=== PATIENT | female | born 1955 | race Caucasian/White ===

== ENCOUNTER 2022-09-16 08:48 | Outpatient (CLI) | payer BC | END 2022-09-16 08:49 | disposition home or self-care (01) | LOC: BICMAMMO 08:48 | PROVIDERS: ATTEND Obstetrics & Gynecology | DX: M85.88 Other specified disorders of bone density and structure, other site (principal); M81.0 Age-related osteoporosis without current pathological fracture | CPT/HCPCS: 77080 ==

== ENCOUNTER 2023-04-12 08:56 | Day surgery (SDC) | payer BC ==
[~2023-04-12 08:56] MED LIST: ROMOSOZUMAB-AQQG 210 MG/2.34 ML SYR SQ SCH
[2023-04-12 10:10] VITALS: BP 119/60; TEMP 98.2
[2023-04-12] MEDS ORDERED: FLU VACC QS2023(65UP)/MF59C/PF 60 MCG/0.5 ML SYRINGE IM ONE (14:00)
== END 2023-04-12 10:10 | disposition home or self-care (01) ==
LOC: ONC/OP 08:56
PROVIDERS: ATTEND Internal Medicine
DX: M81.0 Age-related osteoporosis without current pathological fracture (principal); Z88.2 Allergy status to sulfonamides
CPT/HCPCS: 96372; J3111

== ENCOUNTER 2023-05-11 09:39 | Day surgery (SDC) | payer BC ==
[2023-05-11 09:50] VITALS: BP 148/64; TEMP 98.2
== END 2023-05-11 11:33 | disposition home or self-care (01) ==
LOC: ONC/OP 09:39
PROVIDERS: ATTEND Internal Medicine
DX: M81.0 Age-related osteoporosis without current pathological fracture (principal)
CPT/HCPCS: 96372; J3111

== ENCOUNTER 2023-07-07 09:46 | Day surgery (SDC) | payer BC ==
[2023-07-07 10:02] VITALS: BP 139/64; TEMP 98.1
[2023-07-07] MEDS: ROMOSOZUMAB-AQQG 210 MG/2.34 ML SYR SQ SCH (10:07)
== END 2023-07-07 10:23 | disposition home or self-care (01) ==
LOC: ONC/OP 09:46
PROVIDERS: ATTEND Internal Medicine
DX: M81.0 Age-related osteoporosis without current pathological fracture (principal); Z88.2 Allergy status to sulfonamides
CPT/HCPCS: 96372; J3111

== ENCOUNTER 2023-08-03 09:20 | Day surgery (SDC) | payer BC ==
[2023-08-03 09:49] VITALS: BP 126/65; TEMP 98.5
[2023-08-03] MEDS: ROMOSOZUMAB-AQQG 210 MG/2.34 ML SYR SQ SCH (10:20)
== END 2023-08-03 10:35 | disposition home or self-care (01) ==
LOC: ONC/OP 09:20
PROVIDERS: ATTEND Internal Medicine
DX: M81.0 Age-related osteoporosis without current pathological fracture (principal); Z88.2 Allergy status to sulfonamides
CPT/HCPCS: 96372; J3111

== ENCOUNTER 2023-11-29 08:58 | Day surgery (SDC) | payer BC ==
[2023-11-29 09:11] VITALS: BP 135/63; TEMP 98.6
== END 2023-11-29 09:42 | disposition home or self-care (01) ==
LOC: ONC/OP 08:58
PROVIDERS: ATTEND Internal Medicine
DX: M81.0 Age-related osteoporosis without current pathological fracture (principal); Z88.2 Allergy status to sulfonamides
CPT/HCPCS: 96372; J3111

== ENCOUNTER → 2024-02-28 | Day surgery (SDC) | payer BC ==
[2024-02-28 09:30] VITALS: BP 130/60; TEMP 97.9
[2024-02-28] MEDS: ROMOSOZUMAB-AQQG 105 MG/1.17 ML SYR SQ SCH (09:47)
== END ==
LOC: ONC/OP 09:21
PROVIDERS: ATTEND Internal Medicine
DX: M81.0 Age-related osteoporosis without current pathological fracture (principal); Z88.2 Allergy status to sulfonamides
CPT/HCPCS: 96372; J3111